=== PATIENT | male | born 1970 | race Caucasian/White ===

== ENCOUNTER 2017-01-23 16:33 | Inpatient (IN) | payer OTHER ==
--- NOTE | 2017-01-23 18:48 | HP ---
CIWA Score - CIWA Score Nausea/Vomitin Muscle Tremors: 3 Anxiety: 3 Agitation: 3 Paroxysmal Sweats: 2 Orientation: 0-Oriented Tacttile Disturbances: 2-Mild Itch/Numbness/Burn Auditory Disturbances: 2-Mild Harshness/Frighten Visual Disturbances: 0-None Headache: 2-Mild CIWA-Ar Total Score: 20 Admission ROS [facility] - HPI Chief Complaint: I AM HERE NEED HELP TO STOP DRINKING ALCOHOL AND USING DRUGS COCAINE,LAST TREATMENT 2010 DID NOT RECALL FACILITY SYNCOPE ANXIETY,DEPRESSION,PTSD,MOOD DISORDER SEVRAL ADMISSIONS IN THE PSYCHIATRIC FACILITIES NICOTINE DEPENDENCE NO SIGNIFICANT PERIOD OF SOBRIETY Allergies/Adverse Reactions: Allergies Allergy/AdvReac Type Severity Reaction Status Date / Time No Known Allergies Allergy Verified 01/23/17 18:48 History of Present Illness: THIS 46 YEARS OLD MALE WITH ALCOHOL,KLONOPIN,COCAINE FOR DETOX MENTIONED IN CHIEF COMPLAINT Exam Limitations: No Limitations - Ebola screening Have you traveled outside of the country in the last 21 days: No Have you had contact with anyone from an Ebola affected area: No Do you have a fever: No - Review of Systems Constitutional: Loss of Appetite, Malaise, Night Sweats, Changes in sleep, Weakness, Unintentional Wgt. Loss EENT: reports: Nose Congestion Respiratory: reports: No Symptoms reported Cardiac: reports: No Symptoms Reported GI: reports: Diarrhea, Nausea, Vomiting, Abdominal cramping : reports: No Symptoms Reported Musculoskeletal: reports: Back Pain, Muscle Pain, Joint Stiffness Integumentary: reports: Dryness Neuro: reports: Headache, Tremors Endocrine: reports: No Symptoms Reported Hematology: reports: No Symptoms Reported Psychiatric: reports: No Sypmtoms Reported, Judgement Intact, Mood/Affect Appropiate, Orientated x3 (PTSD,MMOD DISORDER), Anxious, Depressed Patient History - Patient Medical History Hx Anemia: No Hx Asthma: No Hx Chronic Obstructive Pulmonary Disease (COPD): No Hx Cancer: No Hx Cardiac Disorders: No Hx Congestive Heart Failure: No Hx Hypertension: No Hx Hypercholesterolemia: No Hx Pacemaker: No HX Cerebrovascular Accident: No Hx Seizures: No Hx Dementia: No Hx Diabetes: No Hx Gastrointestinal Disorders: Yes Hx Liver Disease: No Hx Genitourinary Disorders: No Hx Sexually Transmitted Disorders: Yes (GONORRHEA) Hx Renal Disease (ESRD): No Hx Thyroid Disease: No Hx Human Immunodeficiency Virus (HIV): No Hx Hepatitis C: No Hx Depression: Yes (ANXIETY) Hx Suicide Attempt: Yes (HANG HIMSELF IN 2007) Hx Bipolar Disorder: No Hx Schizophrenia: No Other Medical History: MOOD DISORDER,PTSD,NO SUICIDAL,NO HOMICIDAL - Patient Surgical History Past Surgical History: No - PPD History Previous Implant?: Yes Documented Results: Negative w/o proof Implanted On Prior [facility] Admission?: No PPD to be Administered?: Yes - Smoking Cessation Smoking history: Current every day smoker Have you smoked in the past 12 months: Yes Aproximately how many cigarettes per day: 20 Hx Chewing Tobacco Use: No Initiated information on smoking cessation: Yes 'Breaking Loose' booklet given: 01/23/17 - Substance & Tx. History Hx Alcohol Use: Yes Hx Substance Use: Yes Substance Use Type: Alcohol, Cocaine, Tranquilizers Hx Substance Use Treatment: Yes (2010 UNKNOWN FACILITY) - Substances Abused Alcohol Route: Oral Frequency: Daily Amount used: 5 PINTS Age of first use: 15 Date of Last Use: 01/23/17 Benzodiazepine (Klonopin) Route: Oral Frequency: Daily Amount used: 17 Date of Last Use: 01/23/17 Cocaine Route: Injection Frequency: Daily Amount used: 250$ Age of first use: 18 Date of Last Use: 01/22/17 Family Disease History - Family Disease History Family Disease History: Other: Father (ALCOHOL,PSY,DECEDASED) Admission Physical Exam BHS - Vital Signs Vital Signs: Vital Signs Temperature 97 F L 01/23/17 19:04 Pulse Rate 97 H 01/23/17 19:04 Respiratory Rate 20 01/23/17 19:04 Blood Pressure 118/79 01/23/17 19:04 O2 Sat by Pulse Oximetry (%) - Physical General Appearance: Yes: Moderate Distress, Tremorous, Irritable, Sweating, Anxious HEENTM: Yes: Normal ENT Inspection, TEA, Pharynx Normal Respiratory: Yes: Lungs Clear, Normal Breath Sounds, No Respiratory Distress Neck: Yes: Within Normal Limits, Supple, Trachea in good position Breast: Yes: Within Normal Limits Cardiology: Yes: Within Normal Limits, Regular Rhythm, Regular Rate, S1, S2 Abdominal: Yes: Within Normal Limits, Normal Bowel Sounds, Non Tender, Soft Genitourinary: Yes: Within Normal Limits Back: Yes: Muscle Spasm Musculoskeletal: Yes: Back pain, Muscle Pain Extremities: Yes: Within Normal Limits, Normal Range of Motion, Tremors Neurological: Yes: pr manager II-XII NML intact, Alert, Motor Strength 5/5 Integumentary: Yes: Dry Lymphatic: Yes: Within Normal Limits - Diagnostic (1) Alcohol dependence with uncomplicated withdrawal Current Visit: Yes Status: Acute (2) Uncomplicated sedative, hypnotic or anxiolytic withdrawal Current Visit: Yes Status: Acute (3) Nicotine dependence Current Visit: Yes Status: Acute (4) Anxiety and depression Current Visit: Yes Status: Acute (5) PTSD (post-traumatic stress disorder) Current Visit: Yes Status: Acute (6) Mood disorder Current Visit: Yes Status: Acute (7) GERD (gastroesophageal reflux disease) Current Visit: Yes Status: Acute (8) Syncope Current Visit: Yes Status: Acute (9) Weight loss Current Visit: Yes Status: Acute Cleared for Admission BHS - Detox or Rehab S Level of Care: Medically Managed Detox Regimen/Protocol: Valium BHS Breath Alcohol Content Breath Alcohol Content: 0 Vital Signs - Vital Signs Vital Signs Refused: No Temperature: 97 F Temperature Source: Oral Pulse Rate: 97 Respiratory Rate: 20 Blood Pressure: 118/79 BP Location: Left Arm Blood Pressure Position: Sitting - Height Height: 5 ft 8 in - Weight Weight: 183 lb Weight Measurement Method: Standing Scale Body Mass Index (BMI): 27.8 Urine Drug Screen - Test Device Lot Number: [id number] Expiration Date: 10/08/18 - Control Is Test Valid: Yes - Results Drug Screen Negative: No Urine Drug Screen Results: JONATHAN-Cocaine, BZO-Benzodiazepines
[2017-01-23 19:04] VITALS: BMI 27.8
[2017-01-23] MEDS ORDERED: MAG HYDROX/AL HYDROX/SIMETH 30 ML UNIT-DOSE CUP PO PRN (19:12)
[2017-01-23] MEDS ORDERED: MAGNESIUM HYDROX 2400MG/30ML ORAL SUSPENSION 30 ML CUP PO PRN (19:12)
[2017-01-23] MEDS ORDERED: hydrOXYzine PAMOATE 50 MG CAPSULE (FP) PO PRN (19:12)
[2017-01-23] MEDS ORDERED: diphenhydrAMINE HCL 50 MG CAPSULE PO PRN (19:12)
[2017-01-23] MEDS ORDERED: MENTHOL/PHENOL 1 EACH UD MM PRN (19:12)
[2017-01-23] MEDS ORDERED: IBUPROFEN 400 MG TABLET (FP) PO PRN (19:12)
[2017-01-23] MEDS ORDERED: MAGNESIUM CITRATE 300 ML BOTTLE PO PRN (19:12)
[2017-01-23] MEDS ORDERED: guaiFENesin/D-METHORPHAN HB 10 ML UNIT-DOSE CUPS PO PRN (19:12)
[2017-01-23] MEDS ORDERED: ACETAMINOPHEN 325 MG TABLET (FP) PO PRN (19:12)
[2017-01-23] MEDS ORDERED: LOPERAMIDE HCL 2 MG CAPSULE PO PRN (19:12)
[2017-01-23] MEDS ORDERED: P-EPHED 60MG/TRIPROLIDI 2.5MG TABLET PO PRN (19:12)
[2017-01-23] MEDS ORDERED: diazePAM 5 MG TABLET PO ONE (19:12)
[2017-01-23] MEDS: NICOTINE 21 MG/24 HOURS TOPICAL PATCH TD SCH (22:03)
--- NOTE | 2017-01-23 22:28 | PN ---
[facility] Progress Note Note: MD'S NOTE: INFORMED AT ABOUT 10:10PM THAT THE PT. FELL ON THE FLOOR SUB: HE CLAIMS THAT HE DID NO SLEEP FOR 5 DAYS AND FEELING SLEEPY DENIES: ANY PAIN OR INJURY OR HITTING THE HEAD OBJ: THE PT. IS VILLEDA X 3, NOT IN DISTRESS AND HE IS AMBULATORY HE IS VERY IRRITABLE FOR ABOVE REASON. 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
[2017-01-23] MEDS: THIAMINE HCL 100 MG TABLET (FP) PO SCH (22:35)
[2017-01-23] MEDS: diazePAM 5 MG TABLET PO SCH (22:37)
[2017-01-24] MEDS: diazePAM 5 MG TABLET PO SCH ×3 (05:23→22:21)
[2017-01-24 09:42] LABS: URINE APPEARANCE CLEAR; URINE BILIRUBIN NEGATIVE (NEGATIVE); URINE BLOOD NEGATIVE (NEGATIVE); URINE COLOR LT. YELLOW; URINE GLUCOSE (UA) NEGATIVE (NEGATIVE); URINE KETONE NEGATIVE (NEGATIVE); URINE NITRITE NEGATIVE (NEGATIVE); URINE PROTEIN NEGATIVE (NEGATIVE)
[2017-01-24 09:50] LABS: MCH 30.9 pg (25.7-33.7); MCHC 33.7 g/dl (32.0-35.9); MEAN CELL VOLUME 91.6 fl (80-96); MEAN PLT VOLUME 8.4 fl (7.5-11.1); PLATELET COUNT 202 K/MM3 (134-434); RDW 13.5 % (11.9-15.9)
[2017-01-24 10:11] LABS: ALBUMIN 3.2 g/dl (3.4-5.0); ALK PHOS 96 U/L (45-117); ANION GAP 8 (8-16); BILIRUBIN,TOTAL 0.5 mg/dL (0.2-1.0); CALCIUM 8.2 mg/dL (8.5-10.1); CO2 30 mmol/L (21-32); CREATININE 1.3 mg/dL (0.7-1.3); GLUCOSE,RANDOM 137 mg/dL (74-106); SGOT/AST 52 U/L (15-37); SGPT/ALT 83 U/L (12-78); TOT PROT 6.5 g/dl (6.4-8.2)
[2017-01-24] MEDS: PRENATAL VITAMINS W/ FOLIC ACID TABLET (FP) PO SCH (10:26)
[2017-01-24] MEDS: NICOTINE 21 MG/24 HOURS TOPICAL PATCH TD SCH (10:27)
[2017-01-24] MEDS: diazePAM 5 MG TABLET PO PRN ×2 (10:29→18:08)
--- NOTE | 2017-01-24 11:55 | PN ---
S CIWA - CIWA Score Nausea/Vomitin Muscle Tremors: 3 Anxiety: 3 Agitation: 3 Paroxysmal Sweats: 1-Minimal Palms Moist Orientation: 0-Oriented Tacttile Disturbances: 1-Very Mild Itch/Numbness Auditory Disturbances: 1-Very Mild Visual Disturbances: 0-None Headache: 2-Mild CIWA-Ar Total Score: 17 BHS Progress Note (SOAP) Subjective: alert,irritable,anxious,interrupted sleep,tremor,pain in the body and back Objective: 01/24/17 11:53 01/24/17 11:53 Vital Signs Temperature 97.0 F L 01/24/17 11:04 Pulse Rate 84 01/24/17 11:04 Respiratory Rate 18 01/24/17 11:04 Blood Pressure 130/79 01/24/17 11:04 O2 Sat by Pulse Oximetry (%) ekg nsr,prolong qt no chest pain,no sob no dizziness 01/24/17 11:54 Laboratory Last Values WBC 8.0 K/mm3 (4.0-10.0) 01/24/17 07:00 RBC 4.65 M/mm3 (4.00-5.60) 01/24/17 07:00 Hgb 14.4 GM/dL (11.7-16.9) 01/24/17 07:00 Hct 42.6 % (35.4-49) 01/24/17 07:00 MCV 91.6 fl (80-96) 01/24/17 07:00 MCH 30.9 pg (25.7-33.7) 01/24/17 07:00 MCHC 33.7 g/dl (32.0-35.9) 01/24/17 07:00 RDW 13.5 % (11.9-15.9) 01/24/17 07:00 Plt Count 202 K/MM3 (134-434) 01/24/17 07:00 MPV 8.4 fl (7.5-11.1) 01/24/17 07:00 Sodium 142 mmol/L (136-145) 01/24/17 07:00 Potassium 3.3 mmol/L (3.5-5.1) L 01/24/17 07:00 Chloride 104 mmol/L (98-107) 01/24/17 07:00 Carbon Dioxide 30 mmol/L (21-32) 01/24/17 07:00 Anion Gap 8 (8-16) 01/24/17 07:00 BUN 17 mg/dL (7-18) 01/24/17 07:00 Creatinine 1.3 mg/dL (0.7-1.3) 01/24/17 07:00 Creat Clearance w eGFR 59.70 (>60) 01/24/17 07:00 Random Glucose 137 mg/dL (74-106) H 01/24/17 07:00 Calcium 8.2 mg/dL (8.5-10.1) L 01/24/17 07:00 Total Bilirubin 0.5 mg/dL (0.2-1.0) 01/24/17 07:00 AST 52 U/L (15-37) H 01/24/17 07:00 ALT 83 U/L (12-78) H 01/24/17 07:00 Alkaline Phosphatase 96 U/L (45-117) 01/24/17 07:00 Total Protein 6.5 g/dl (6.4-8.2) 01/24/17 07:00 Albumin 3.2 g/dl (3.4-5.0) L 01/24/17 07:00 Urine Color Lt. yellow 01/24/17 07:00 Urine Appearance Clear 01/24/17 07:00 Urine pH 6.0 (5.0-8.0) 01/24/17 07:00 Urine Protein Negative (NEGATIVE) 01/24/17 07:00 Urine Glucose (UA) Negative (NEGATIVE) 01/24/17 07:00 Urine Ketones Negative (NEGATIVE) 01/24/17 07:00 Urine Blood Negative (NEGATIVE) 01/24/17 07:00 Urine Nitrite Negative (NEGATIVE) 01/24/17 07:00 Urine Bilirubin Negative (NEGATIVE) 01/24/17 07:00 Urine Urobilinogen 2.0 mg/dL (0.2-1.0) 01/24/17 07:00 RPR Titer Nonreactive (NONREACTIVE) 01/24/17 07:00 Assessment: 01/24/17 11:55 withdrawal symptom Plan: continue detox,k dur 20 meq po daily for hypokalemia k is 3.3, fasting glucose in am initial glucose is 137
[2017-01-24] MEDS: POTASSIUM CHLORIDE TABS 20 MEQ TABLET.ER (FP) PO SCH (12:10)
--- NOTE | 2017-01-24 14:03 | CONSULT ---
[facility] Psychiatric Consult - Data Date of interview: 01/24/17 Admission source: [facility] Identifying data: First admission to [facility] for this 46 y/o male seeking detox treatment on for alcohol,cocaine and benzodiazepine dependence.Patient is single without children,homeless,unemployed and supported on [facility] benefits. Substance Abuse History: Discussed with the patient.He confirmed these addictions. Smoking Cessation. Smoking history: Current every day smoker. Have you smoked in the past 12 months: Yes. Aproximately how many cigarettes per day: 20. Hx Chewing Tobacco Use: No. Initiated information on smoking cessation: Yes. 'Breaking Loose' booklet given: 01/23/17. - Substance & Tx. History. Hx Alcohol Use: Yes. Hx Substance Use: Yes. Substance Use Type: Alcohol, Cocaine, Tranquilizers. Hx Substance Use Treatment: Yes (2010 UNKNOWN FACILITY). - Substances Abused. Alcohol. Route: Oral. Frequency: Daily. Amount used: 5 PINTS. Age of first use: 15. Date of Last Use: 01/23/17. Benzodiazepine (Klonopin). Route: Oral. Frequency: Daily. Amount used: 17. Date of Last Use: 01/23/17. Cocaine. Route: Injection. Frequency: Daily. Amount used: 250$. Age of first use: 18. Date of Last Use: 01/22/17 Medical History: Gerd and a history of treatment for gonorrhea. Psychiatric History: Patient reports onset of psychiatric disturbances at age 34 ( of mother).Multiple psychiatric hospitalizations (just discharged from [facility]).Diagnosed with MDD and Anxiety Disorder.Prescribed depakote 1500 mg/day + remeron 30 mg/hs + wellbutrin XR 450 mg/day (verified through review of pharmacy claims of 01/20/17).Mr Beasley sees a psychiatrist for medication management at the [facility] in [facility].States that he last took his medications 3-4 days ago.Eager to resume medications.Patient endorses a history of suicide attempt via hanging (2007). Physical/Sexual Abuse/Trauma History: No reported history of abuse.Traumatized by the of his mother and three years of incarceration (details not offered ). Additional Comment: Urine Drug Screen Results: JONATHAN-Cocaine, BZO- Benzodiazepines.Noted. Mental Status Exam - Mental Status Exam Alert and Oriented to: Time, Place, Person Cognitive Function: Good Patient Appearance: Disheveled (unshaven but wearing neat hospital attire ; appears his stated age ; well nourished) Mood: Nervous, Anxious, Hopeful Affect: Mood Congruent Patient Behavior: Talkative (friendly and seemingly comfortable in the delivery of personal information), Cooperative Speech Pattern: Clear, Appropriate Voice Loudness: Normal Thought Process: Intact, Goal Oriented Thought Disorder: Not Present Hallucinations: Denies Suicidal Ideation: Denies Homicidal Ideation: Denies Insight/Judgement: Poor Sleep: Poorly, Difficulty falling asleep (insists on getting mirtazapine at bedtime) Appetite: Good Muscle strength/Tone: Normal Gait/Station: Normal Psychiatric Findings - Problem List ([place] 1, 2,3) (1) Uncomplicated sedative, hypnotic or anxiolytic withdrawal Current Visit: Yes Status: Acute (2) Alcohol dependence with uncomplicated withdrawal Current Visit: Yes Status: Acute (3) Cocaine dependence Current Visit: Yes Status: Acute (4) Nicotine dependence Current Visit: Yes Status: Acute (5) Mood disorder Current Visit: Yes Status: Chronic Comment: Diagnosis received at [facility] as per self-report. (6) PTSD (post-traumatic stress disorder) Current Visit: Yes Status: Chronic (7) Substance induced mood disorder Current Visit: Yes Status: Acute (8) GERD (gastroesophageal reflux disease) Current Visit: Yes Status: Acute (9) Insomnia Current Visit: Yes Status: Acute - Initial Treatment Plan Initial Treatment Plan: Psychoeducation.Detoxification in progress.Medications : wellbutrin XL 300 mg po today.Will increase to 450 mg po daily.Additional medications : depakote 500 mg po am + 1000 mg po hs + remeron 7.5 mg po hs ( reduced as caution for orthostasis).Side effects/benefits discussed with the patient.Mr Beasley is in agreement with this plan of care.Observation.NO scripts needed at discharge.
[2017-01-24 16:52] LABS: URINE LEUK ESTERASE Negative (NEGATIVE)
[2017-01-24] MEDS: DIVALPROEX SODIUM 500 MG TABLET E.C. PO SCH (22:21)
[2017-01-24] MEDS: THIAMINE HCL 100 MG TABLET (FP) PO SCH (22:21)
[2017-01-24] MEDS: MIRTAZAPINE 15 MG TABLET (FP) PO SCH (22:22)
[2017-01-25] MEDS: diazePAM 5 MG TABLET PO PRN ×4 (04:19→17:03)
--- NOTE | 2017-01-25 07:22 | EKG ---
Test Reason : Blood Pressure : / mmHG Vent. Rate : 091 BPM Atrial Rate : 091 BPM P-R Int : 154 ms QRS Dur : 096 ms QT Int : 418 ms P-R-T Axes : 035 024 031 degrees QTc Int : 514 ms NORMAL SINUS RHYTHM PROLONGED QT ABNORMAL ECG NO PREVIOUS ECGS AVAILABLE Confirmed by BOBBY ADHIKARI, KAREN ([id number]) on 01/25/2017 7:22:39 AM Referred By: Kentrell Delgado Confirmed By:KAREN ROSALES MD
[2017-01-25 10:05] LABS: ANION GAP 9 (8-16); CALCIUM 8.2 mg/dL (8.5-10.1); CO2 28 mmol/L (21-32); GLUCOSE,FASTING 113 mg/dL (70-105); GLUCOSE,RANDOM 113 mg/dL (74-106)
[2017-01-25] MEDS: NICOTINE 21 MG/24 HOURS TOPICAL PATCH TD SCH (10:25)
[2017-01-25] MEDS: POTASSIUM CHLORIDE TABS 20 MEQ TABLET.ER (FP) PO SCH (10:25)
[2017-01-25] MEDS: PRENATAL VITAMINS W/ FOLIC ACID TABLET (FP) PO SCH (10:25)
[2017-01-25] MEDS: DIVALPROEX SODIUM 500 MG TABLET E.C. PO SCH ×2 (10:25→22:19)
[2017-01-25] MEDS: diazePAM 5 MG TABLET PO SCH ×2 (10:26→22:18)
--- NOTE | 2017-01-25 10:50 | PN ---
S CIWA - CIWA Score Nausea/Vomitin Muscle Tremors: 3 Anxiety: 3 Agitation: 3 Paroxysmal Sweats: 1-Minimal Palms Moist Orientation: 0-Oriented Tacttile Disturbances: 1-Very Mild Itch/Numbness Auditory Disturbances: 1-Very Mild Visual Disturbances: 0-None Headache: 2-Mild CIWA-Ar Total Score: 17 BHS Progress Note (SOAP) Subjective: alert,irritable,anxious,interrupted sleep,tremor Objective: 01/25/17 10:49 Vital Signs Temperature 97.3 F L 01/25/17 10:00 Pulse Rate 85 01/25/17 10:00 Respiratory Rate 18 01/25/17 10:00 Blood Pressure 139/88 01/25/17 10:00 O2 Sat by Pulse Oximetry (%) Laboratory Last Values WBC 8.0 K/mm3 (4.0-10.0) 01/24/17 07:00 RBC 4.65 M/mm3 (4.00-5.60) 01/24/17 07:00 Hgb 14.4 GM/dL (11.7-16.9) 01/24/17 07:00 Hct 42.6 % (35.4-49) 01/24/17 07:00 MCV 91.6 fl (80-96) 01/24/17 07:00 MCH 30.9 pg (25.7-33.7) 01/24/17 07:00 MCHC 33.7 g/dl (32.0-35.9) 01/24/17 07:00 RDW 13.5 % (11.9-15.9) 01/24/17 07:00 Plt Count 202 K/MM3 (134-434) 01/24/17 07:00 MPV 8.4 fl (7.5-11.1) 01/24/17 07:00 Sodium 142 mmol/L (136-145) 01/24/17 07:00 Potassium 3.3 mmol/L (3.5-5.1) L 01/24/17 07:00 Chloride 104 mmol/L (98-107) 01/24/17 07:00 Carbon Dioxide 30 mmol/L (21-32) 01/24/17 07:00 Anion Gap 8 (8-16) 01/24/17 07:00 BUN 17 mg/dL (7-18) 01/24/17 07:00 Creatinine 1.3 mg/dL (0.7-1.3) 01/24/17 07:00 Creat Clearance w eGFR 59.70 (>60) 01/24/17 07:00 Random Glucose 137 mg/dL (74-106) H 01/24/17 07:00 Calcium 8.2 mg/dL (8.5-10.1) L 01/24/17 07:00 Total Bilirubin 0.5 mg/dL (0.2-1.0) 01/24/17 07:00 AST 52 U/L (15-37) H 01/24/17 07:00 ALT 83 U/L (12-78) H 01/24/17 07:00 Alkaline Phosphatase 96 U/L (45-117) 01/24/17 07:00 Total Protein 6.5 g/dl (6.4-8.2) 01/24/17 07:00 Albumin 3.2 g/dl (3.4-5.0) L 01/24/17 07:00 Urine Color Lt. yellow 01/24/17 07:00 Urine Appearance Clear 01/24/17 07:00 Urine pH 6.0 (5.0-8.0) 01/24/17 07:00 Ur Specific [place] 1.025 (1.005-1.025) 01/24/17 07:00 Urine Protein Negative (NEGATIVE) 01/24/17 07:00 Urine Glucose (UA) Negative (NEGATIVE) 01/24/17 07:00 Urine Ketones Negative (NEGATIVE) 01/24/17 07:00 Urine Blood Negative (NEGATIVE) 01/24/17 07:00 Urine Nitrite Negative (NEGATIVE) 01/24/17 07:00 Urine Bilirubin Negative (NEGATIVE) 01/24/17 07:00 Urine Urobilinogen 2.0 mg/dL (0.2-1.0) 01/24/17 07:00 Ur Leukocyte Esterase Negative (NEGATIVE) 01/24/17 07:00 RPR Titer Nonreactive (NONREACTIVE) 01/24/17 07:00 repeat bmp,fasting glucose pending Assessment: 01/25/17 10:50 withdrawal symptom Plan: continue detox
[2017-01-25] MEDS ORDERED: ONDANSETRON 8 MG TABLET (FP) PO PRN (18:03)
[2017-01-25] MEDS: PANTOPRAZOLE 40 MG TABLET (FP) PO SCH (18:05)
[2017-01-25] MEDS: ONDANSETRON *ODT* 4 MG TABLET SL PRN (18:32)
[2017-01-25] MEDS: THIAMINE HCL 100 MG TABLET (FP) PO SCH (22:18)
[2017-01-25] MEDS: MIRTAZAPINE 15 MG TABLET (FP) PO SCH (22:19)
[2017-01-26] MEDS: diazePAM 5 MG TABLET PO PRN ×4 (02:42→16:36)
[2017-01-26] MEDS: PRENATAL VITAMINS W/ FOLIC ACID TABLET (FP) PO SCH (10:21)
[2017-01-26] MEDS: diazePAM 5 MG TABLET PO SCH ×2 (10:21→22:21)
[2017-01-26] MEDS: POTASSIUM CHLORIDE TABS 20 MEQ TABLET.ER (FP) PO SCH (10:21)
[2017-01-26] MEDS: PANTOPRAZOLE 40 MG TABLET (FP) PO SCH (10:21)
[2017-01-26] MEDS: NICOTINE 21 MG/24 HOURS TOPICAL PATCH TD SCH (10:21)
[2017-01-26] MEDS: DIVALPROEX SODIUM 500 MG TABLET E.C. PO SCH ×2 (10:21→22:21)
[2017-01-26] MEDS: ONDANSETRON *ODT* 4 MG TABLET SL PRN (10:22)
--- NOTE | 2017-01-26 11:19 | PN ---
S Progress Note (SOAP) Subjective: alert,irritable,anxious,interrupted sleep Objective: 01/26/17 11:19 Vital Signs Temperature 96.6 F L 01/26/17 10:00 Pulse Rate 70 01/26/17 10:00 Respiratory Rate 18 01/26/17 10:00 Blood Pressure 134/80 01/26/17 10:00 O2 Sat by Pulse Oximetry (%) Assessment: 01/26/17 11:19 withdrawal symptom Plan: continue detox,discharge in am
[2017-01-26] MEDS ORDERED: TRIMETHOBENZAMIDE HCL 200MG/2ML INJ IM PRN (13:17)
[2017-01-26] MEDS: THIAMINE HCL 100 MG TABLET (FP) PO SCH (22:21)
[2017-01-26] MEDS: MIRTAZAPINE 15 MG TABLET (FP) PO SCH (22:21)
[2017-01-27 06:36] VITALS: PULSE 90
--- NOTE | 2017-01-27 08:34 | DS ---
[facility] Detox Discharge Summary Admission Date: 01/23/17 Discharge Date: 01/27/17 - History Present History: Alcohol Dependence, Cocaine Dependence, Sedative Dependence Additional Comments: follow up with after care program as arrangement Pertinent Past History: gerd weight loss ptsd - Physical Exam Results Vital Signs: Vital Signs Temperature 97.3 F L 01/27/17 06:36 Pulse Rate 90 01/27/17 06:36 Respiratory Rate 20 01/27/17 06:36 Blood Pressure 119/90 01/27/17 06:36 O2 Sat by Pulse Oximetry (%) Pertinent Admission Physical Exam Findings: withdrawal symptom - Treatment Hospital Course: Detox Protocol Followed, Detoxed Safely, Responded well, Discharged Condition Good, Rehab Referral Accepted Patient has Accepted [facility] Ref[facility] - Medication Discharge Medications: Ambulatory Orders Divalproex [Depakote -] 1,000 mg PO DAILY 01/23/17 Divalproex [Depakote -] 500 mg PO HS 01/23/17 Emtricitabine/Tenofovir [Truvada] 1 tab PO DAILY 01/23/17 Mirtazapine [Remeron -] 30 mg PO HS 01/23/17 Omeprazole 40 mg PO DAILY 01/23/17 - Diagnosis (1) Alcohol dependence with uncomplicated withdrawal Current Visit: Yes Status: Acute (2) Uncomplicated sedative, hypnotic or anxiolytic withdrawal Current Visit: Yes Status: Acute (3) Nicotine dependence Current Visit: Yes Status: Acute (4) Anxiety and depression Current Visit: Yes Status: Acute (5) PTSD (post-traumatic stress disorder) Current Visit: Yes Status: Chronic (6) Mood disorder Current Visit: Yes Status: Chronic (7) GERD (gastroesophageal reflux disease) Current Visit: Yes Status: Acute (8) Syncope Current Visit: Yes Status: Acute (9) Weight loss Current Visit: Yes Status: Acute (10) Hypokalemia Current Visit: Yes Status: Acute - AMA Did Patient Leave Against Medical Advice: No
[2017-01-27] MEDS: PRENATAL VITAMINS W/ FOLIC ACID TABLET (FP) PO SCH (09:40)
[2017-01-27] MEDS: PANTOPRAZOLE 40 MG TABLET (FP) PO SCH (09:40)
[2017-01-27] MEDS: POTASSIUM CHLORIDE TABS 20 MEQ TABLET.ER (FP) PO SCH (09:41)
[2017-01-27] MEDS: DIVALPROEX SODIUM 500 MG TABLET E.C. PO SCH (09:41)
[2017-01-27] MEDS: NICOTINE 21 MG/24 HOURS TOPICAL PATCH TD SCH (09:47)
[2017-01-27 09:56] VITALS: BP 122/89; TEMP 98.3
[2017-01-27] MEDS ORDERED: diazePAM 5 MG TABLET PO SCH (10:00)
== END 2017-01-27 12:04 | disposition other institution (70) | DRG 897 ==
LOC: YASAS 16:33 → Y6N 19:47
PROVIDERS: ADMIT Internal Medicine; ATTEND Internal Medicine
PROC: HZ2ZZZZ Detoxification Services for Substance Abuse Treatment (ICD-10-PCS; principal; 2017-01-23)
DX: F13.230 Sedative, hypnotic or anxiolytic dependence with withdrawal, uncomplicated (principal); F10.230 Alcohol dependence with withdrawal, uncomplicated; F17.210 Nicotine dependence, cigarettes, uncomplicated; F41.8 Other specified anxiety disorders; F43.10 Post-traumatic stress disorder, unspecified; F39 Unspecified mood [affective] disorder; E87.5 Hyperkalemia; K21.9 Gastro-esophageal reflux disease without esophagitis; G47.00 Insomnia, unspecified; R63.4 Abnormal weight loss; Z68.27 Body mass index [BMI] 27.0-27.9, adult; Z59.0 Homelessness
CPT/HCPCS: 36415; 80048; 80053; 80164; 81003; 82947; 85027; 86593; 93005; 93010

== ENCOUNTER 2022-01-29 09:55 | Inpatient (IN) | payer OTHER ==
[2022-01-29] MEDS ORDERED: ACETAMINOPHEN 1000 MG/100 ML BAG IVPB ONE (10:08)
[2022-01-29] MEDS ORDERED: SODIUM CHLORIDE 0.9% 500 ML INFUS.BAG IV ONE (10:08)
[2022-01-29] MEDS ORDERED: ACETAMINOPHEN INJECTION 100 ML IVPB ONE (10:29)
[2022-01-29 10:55] LABS: VENOUS BASE EXCESS 0.8 mmol/L (-2-2); VENOUS O2 SATURATION 75.6 % (70-80); VENOUS PCO2 48.7 mmHg (38-52); VENOUS PH 7.363 (7.310-7.410)
[2022-01-29 10:56] LABS: URINE APPEARANCE CLEAR; URINE BILIRUBIN NEGATIVE (NEGATIVE); URINE COLOR YELLOW; URINE GLUCOSE (UA) 3+ (NEGATIVE); URINE KETONE NEGATIVE (NEGATIVE); URINE LEUK ESTERASE NEGATIVE (NEGATIVE); URINE NITRITE NEGATIVE (NEGATIVE); URINE PROTEIN NEGATIVE (NEGATIVE)
[2022-01-29 11:16] LABS: BASO % 0.2 % (0-2.0); EOS % 1.5 % (0-4.5); HEMATOCRIT 50.6 % (35.4-49); HEMOGLOBIN 16.9 GM/dL (11.7-16.9); LYMPH % 12.2 % (8-40); MCH 30.6 pg (25.7-33.7); MCHC 33.3 g/dl (32.0-35.9); MEAN CELL VOLUME 91.9 fl (80-96); MEAN PLT VOLUME 9.1 fl (7.5-11.1); MONO % 9.9 % (3.8-10.2); NEUT % 76.2 % (42.8-82.8); PLATELET COUNT 189 10^3/uL (134-434); RBC 5.51 M/mm3 (4.00-5.60); RDW 12.8 % (11.9-15.9); WHITE BLOOD COUNT 12.7 K/mm3 (4.0-10.0)
[2022-01-29 11:19] LABS: CHLORIDE 97 mmol/L (98-107); INR 1.1 (0.83-1.09); PROTHROMBIN TIME (PATIENT) 12.7 SEC (9.7-13.0); SODIUM 136 mmol/L (136-145)
[2022-01-29 11:22] LABS: ACTIVATED PTT 28.6 SECONDS (25.2-36.5); ALBUMIN 3.5 g/dl (3.4-5.0); ANION GAP 10 MMOL/L (8-16); BLOOD UREA NITROGEN 15.1 mg/dL (7-18); CALCIUM 8.7 mg/dL (8.5-10.1); CO2 28 mmol/L (21-32)
[2022-01-29 11:24] LABS: SGPT/ALT 116 U/L (13-61)
[2022-01-29 11:26] LABS: CREATININE 1.4 mg/dL (0.55-1.3); SGOT/AST 81 U/L (15-37)
[2022-01-29 11:27] LABS: BILIRUBIN,TOTAL 1.1 mg/dL (0.2-1)
[2022-01-29 11:28] LABS: ALK PHOS 116 U/L (45-117)
[2022-01-29 11:29] LABS: GLUCOSE,RANDOM 401 mg/dL (74-106)
[2022-01-29] MEDS ORDERED: AZITHROMYCIN IVPB 500 MG in DEXTROSE 5%-WATER - 250 ML IVPB ONE (12:09)
[2022-01-29] MEDS ORDERED: CEFTRIAXONE 1,000 MG in DEXTROSE 5%-WATER - 50 ML IVPB ONE (12:09)
[2022-01-29] MEDS ORDERED: AZITHROMYCIN IVPB 500 MG/250 ML BAG IVPB ONE (12:12)
[2022-01-29] MEDS ORDERED: CEFTRIAXONE 1 GM/50 ML BAG ONE (12:12)
[2022-01-29] MEDS ORDERED: ACETAMINOPHEN 325 MG TABLET (FP) PO PRN (13:44)
[2022-01-29] MEDS ORDERED: SENNOSIDES 8.6MG TABLET (FP) PO PRN (13:44)
[2022-01-29] MEDS ORDERED: FAMOTIDINE 20 MG TABLET PO PRN (13:52)
[2022-01-29 15:41] VITALS: BMI 26.8
[2022-01-29] MEDS ORDERED: NICOTINE 7 MG/24 HOURS TOPICAL PATCH TD PRN (15:46)
[2022-01-29] MEDS: SODIUM CHLORIDE 1,000 ML IV SCH (16:36)
[2022-01-29] MEDS: HEPARIN NA (PORCINE) 5,000 UNITS/ML 1ML VIAL SQ SCH ×2 (16:40→22:00)
[2022-01-29] MEDS ORDERED: FLU VACC QS2022-23(6MOS UP)/PF 60 MCG/0.5 ML SYRINGE IM ONE (17:00)
[2022-01-29] MEDS: INSULIN SLIDING SCALE (NOVOLOG) 1 VIAL SQ SCH ×2 (17:52→21:59)
[2022-01-29] MEDS ORDERED: QUEtiapine FUMARATE 100 MG TABLET (FP) ONE (21:26)
[2022-01-29] MEDS: clonazePAM 0.5 MG TABLET PO SCH (21:51)
[2022-01-29] MEDS: QUEtiapine FUMARATE 300 MG TABLET PO SCH (21:52)
[2022-01-30] MEDS: INSULIN SLIDING SCALE (NOVOLOG) 1 VIAL SQ SCH ×4 (06:36→21:55)
[2022-01-30] MEDS: HEPARIN NA (PORCINE) 5,000 UNITS/ML 1ML VIAL SQ SCH ×3 (06:36→21:45)
[2022-01-30] MEDS: MULTIVITAMINS (DAILY MVI) TABLET (FP) PO SCH (09:17)
[2022-01-30] MEDS: clonazePAM 0.5 MG TABLET PO SCH ×2 (09:18→21:46)
[2022-01-30 09:24] LABS: BASO % 0.5 % (0-2.0); EOS % 2.3 % (0-4.5); HEMATOCRIT 45.8 % (35.4-49); HEMOGLOBIN 15.4 GM/dL (11.7-16.9); LYMPH % 16.2 % (8-40); MCH 30.7 pg (25.7-33.7); MCHC 33.5 g/dl (32.0-35.9); MEAN CELL VOLUME 91.6 fl (80-96); MEAN PLT VOLUME 8.9 fl (7.5-11.1); MONO % 10.4 % (3.8-10.2); NEUT % 70.6 % (42.8-82.8); PLATELET COUNT 168 10^3/uL (134-434); WHITE BLOOD COUNT 9.2 K/mm3 (4.0-10.0)
[2022-01-30 09:53] LABS: BLOOD UREA NITROGEN 7.5 mg/dL (7-18); MAGNESIUM 1.6 mg/dL (1.8-2.4)
[2022-01-30 09:55] LABS: CREATININE 0.9 mg/dL (0.55-1.3); PHOSPHOROUS 2.4 mg/dL (2.5-4.9)
[2022-01-30 09:57] LABS: BILIRUBIN,TOTAL 0.8 mg/dL (0.2-1)
[2022-01-30] MEDS: SODIUM CHLORIDE 1,000 ML IV SCH (15:10)
[2022-01-30] MEDS ORDERED: QUEtiapine FUMARATE 100 MG TABLET (FP) ONE (21:27)
[2022-01-30] MEDS: QUEtiapine FUMARATE 300 MG TABLET PO SCH (21:46)
[2022-01-31 05:19] VITALS: PULSE 88
[2022-01-31] MEDS: HEPARIN NA (PORCINE) 5,000 UNITS/ML 1ML VIAL SQ SCH (07:10)
[2022-01-31] MEDS: INSULIN SLIDING SCALE (NOVOLOG) 1 VIAL SQ SCH ×2 (07:11→11:07)
[2022-01-31 09:00] VITALS: BP 108/72; RESP 18; TEMP 9831
[2022-01-31] MEDS ORDERED: MAGNESIUM SULF 50% (8.12 MEQ/2 ML-1 GM VIAL) IVPB ONE (09:15)
[2022-01-31] MEDS ORDERED: NAPH,MB-DB/K PH,MBDB POWDER PACKET PO ONE (09:31)
[2022-01-31 09:53] LABS: ALBUMIN 3.3 g/dl (3.4-5.0)
[2022-01-31 09:54] LABS: BLOOD UREA NITROGEN 8.6 mg/dL (7-18)
[2022-01-31 09:56] LABS: CREATININE 0.9 mg/dL (0.55-1.3)
[2022-01-31 09:58] LABS: BILIRUBIN,TOTAL 0.5 mg/dL (0.2-1); TOT PROT 6.6 g/dl (6.4-8.2)
[2022-01-31] MEDS ORDERED: ASPIRIN 81 MG CHEWABLE TABLETS PO SCH (10:00)
[2022-01-31] MEDS: MULTIVITAMINS (DAILY MVI) TABLET (FP) PO SCH (10:21)
[2022-01-31] MEDS: clonazePAM 0.5 MG TABLET PO SCH (10:22)
[2022-01-31] MEDS ORDERED: ASPIRIN COATED 81 MG TABLET.EC PO SCH (13:00)
[2022-01-31] MEDS ORDERED: ATORVASTATIN CA 40 MG TABLET (FP) PO SCH (22:00)
== END 2022-01-31 15:04 | disposition home or self-care (01) | DRG 683 ==
LOC: JER 09:55 → JERBED 12:03 → J8W 13:56
PROVIDERS: ADMIT Internal Medicine; ATTEND Internal Medicine
DX: N17.9 Acute kidney failure, unspecified (principal); I42.9 Cardiomyopathy, unspecified; E11.9 Type 2 diabetes mellitus without complications; F17.210 Nicotine dependence, cigarettes, uncomplicated; F19.10 Other psychoactive substance abuse, uncomplicated; G93.89 Other specified disorders of brain; D72.829 Elevated white blood cell count, unspecified; F41.8 Other specified anxiety disorders
CPT/HCPCS: 0241U-QW; 36415; 70450-TC; 71045-TC-FY; 80053; 81003; 82010; 82803; 82962; 83735; 84100; 84443; 84484; 85025; 85610; 85730; 87040; 87086; 93005; 93010; 99285-25; G0008; J1644; Q2036

== ENCOUNTER 2022-02-20 10:35 | Inpatient (IN) | payer OTHER ==
[2022-02-20 12:02] VITALS: BMI 25.0
[2022-02-20] MEDS ORDERED: MAG HYDROX/AL HYDROX/SIMETH 30 ML UNIT-DOSE CUP PO PRN (13:18)
[2022-02-20] MEDS ORDERED: DICYCLOMINE HCL 10 MG CAPSULE PO PRN (13:18)
[2022-02-20] MEDS ORDERED: BISMUTH SUBSALICYLATE 524 MG/30 ML PO PRN (13:18)
[2022-02-20] MEDS ORDERED: LOPERAMIDE HCL 2 MG CAPSULE PO PRN (13:18)
[2022-02-20] MEDS ORDERED: NICOTINE 10 MG CARTRIDGE (INHALER) IH PRN (13:18)
[2022-02-20] MEDS ORDERED: BENZOCAINE/MENTHOL (CHLORASEPTIC ) LOZENGE MM PRN (13:18)
[2022-02-20] MEDS ORDERED: MAGNESIUM HYDROX 2400MG/30ML ORAL SUSPENSION 30 ML CUP PO PRN (13:18)
[2022-02-20] MEDS ORDERED: IBUPROFEN 600 MG TABLET (FP) PO PRN (13:18)
[2022-02-20] MEDS ORDERED: ACETAMINOPHEN 325 MG TABLET (FP) PO PRN ×2 (13:18)
[2022-02-20] MEDS ORDERED: IBUPROFEN 400 MG TABLET (FP) PO PRN (13:18)
[2022-02-20] MEDS ORDERED: ONDANSETRON *ODT* 4 MG TABLET SL PRN (13:18)
[2022-02-20] MEDS: LORazepam 1 MG TABLET PO PRN (14:52)
[2022-02-20] MEDS: METHOCARBAMOL 500 MG TABLET PO PRN (14:52)
[2022-02-20] MEDS: LORazepam 2 MG TABLET PO SCH ×2 (18:01→22:41)
[2022-02-20] MEDS ORDERED: FAMOTIDINE 20 MG TABLET PO PRN (18:44)
[2022-02-20] MEDS ORDERED: SENNOSIDES 8.6MG TABLET (FP) PO PRN (18:44)
[2022-02-20] MEDS: metFORMIN HCL 500 MG TABLET (FP) PO SCH (19:29)
[2022-02-20] MEDS: ATORVASTATIN CA 40 MG TABLET (FP) PO SCH (22:41)
[2022-02-20] MEDS: THIAMINE HCL 100 MG TABLET (FP) PO SCH (22:41)
[2022-02-20] MEDS: MELATONIN 5 MG TABLETS PO SCH (22:41)
[2022-02-21] MEDS: LORazepam 2 MG TABLET PO SCH ×4 (05:25→22:12)
[2022-02-21] MEDS: METHOCARBAMOL 500 MG TABLET PO PRN (05:27)
[2022-02-21] MEDS: metFORMIN HCL 500 MG TABLET (FP) PO SCH ×2 (06:27→17:04)
[2022-02-21] MEDS ORDERED: metFORMIN HCL 500 MG TABLET (FP) PO SCH (07:00)
[2022-02-21] MEDS: NICOTINE 7 MG/24 HOURS TOPICAL PATCH TD SCH (10:22)
[2022-02-21] MEDS: ASPIRIN 81 MG CHEWABLE TABLETS PO SCH (10:22)
[2022-02-21] MEDS: PRENATAL VITAMINS W/ FOLIC ACID TABLET (FP) PO SCH (10:22)
[2022-02-21 12:24] LABS: ALBUMIN 3.4 g/dl (3.4-5.0); BLOOD UREA NITROGEN 9.7 mg/dL (7-18); CALCIUM 8.8 mg/dL (8.5-10.1)
[2022-02-21 12:26] LABS: CREATININE 1.1 mg/dL (0.55-1.3)
[2022-02-21 12:27] LABS: BILIRUBIN,TOTAL 0.2 mg/dL (0.2-1)
[2022-02-21 12:28] LABS: TOT PROT 6.6 g/dl (6.4-8.2)
[2022-02-21] MEDS: hydrOXYzine PAMOATE 25 MG CAPSULE (FP) PO PRN (12:35)
[2022-02-21] MEDS: LORazepam 1 MG TABLET PO PRN (12:35)
[2022-02-21 13:04] LABS: HEMATOCRIT 48.1 % (35.4-49); HEMOGLOBIN 16.6 GM/dL (11.7-16.9); MCH 31.3 pg (25.7-33.7); MCHC 34.4 g/dl (32.0-35.9); MEAN CELL VOLUME 90.8 fl (80-96); MEAN PLT VOLUME 8.7 fl (7.5-11.1); PLATELET COUNT 235 10^3/uL (134-434); RDW 13.3 % (11.9-15.9)
[2022-02-21] MEDS: INSULIN SLIDING SCALE (NOVOLOG) 1 VIAL SQ SCH (17:00)
[2022-02-21] MEDS: MELATONIN 5 MG TABLETS PO SCH (22:11)
[2022-02-21] MEDS: ATORVASTATIN CA 40 MG TABLET (FP) PO SCH (22:12)
[2022-02-21] MEDS: THIAMINE HCL 100 MG TABLET (FP) PO SCH (22:12)
[2022-02-21] MEDS: QUEtiapine FUMARATE 300 MG TABLET PO SCH (22:12)
[2022-02-22] MEDS: LORazepam 1 MG TABLET PO SCH ×4 (05:26→22:25)
[2022-02-22] MEDS: metFORMIN HCL 500 MG TABLET (FP) PO SCH ×2 (07:37→17:01)
[2022-02-22] MEDS: INSULIN SLIDING SCALE (NOVOLOG) 1 VIAL SQ SCH ×2 (07:38→17:03)
[2022-02-22] MEDS: hydrOXYzine PAMOATE 25 MG CAPSULE (FP) PO PRN (10:15)
[2022-02-22] MEDS: ASPIRIN 81 MG CHEWABLE TABLETS PO SCH (10:15)
[2022-02-22] MEDS: PRENATAL VITAMINS W/ FOLIC ACID TABLET (FP) PO SCH (10:15)
[2022-02-22] MEDS: NICOTINE 7 MG/24 HOURS TOPICAL PATCH TD SCH (10:16)
[2022-02-22] MEDS: ATORVASTATIN CA 40 MG TABLET (FP) PO SCH (22:23)
[2022-02-22] MEDS: MELATONIN 5 MG TABLETS PO SCH (22:23)
[2022-02-22] MEDS: THIAMINE HCL 100 MG TABLET (FP) PO SCH (22:23)
[2022-02-22] MEDS: QUEtiapine FUMARATE 300 MG TABLET PO SCH (22:23)
[2022-02-23] MEDS ORDERED: LORazepam 0.5 MG TABLET PO PRN
[2022-02-23] MEDS: LORazepam 0.5 MG TABLET PO SCH ×4 (05:38→22:02)
[2022-02-23] MEDS: INSULIN SLIDING SCALE (NOVOLOG) 1 VIAL SQ SCH ×2 (07:08→17:18)
[2022-02-23] MEDS: metFORMIN HCL 500 MG TABLET (FP) PO SCH ×2 (07:08→17:16)
[2022-02-23] MEDS: PRENATAL VITAMINS W/ FOLIC ACID TABLET (FP) PO SCH (10:11)
[2022-02-23] MEDS: METHOCARBAMOL 500 MG TABLET PO PRN (10:12)
[2022-02-23] MEDS: ASPIRIN 81 MG CHEWABLE TABLETS PO SCH (10:12)
[2022-02-23] MEDS: NICOTINE 7 MG/24 HOURS TOPICAL PATCH TD SCH (10:12)
[2022-02-23] MEDS: hydrOXYzine PAMOATE 25 MG CAPSULE (FP) PO PRN (10:12)
[2022-02-23] MEDS ORDERED: INSULIN (NOVOLOG) ASPART 100 UNITS/ML 10ML VIAL ONE ×2 (17:10→17:21)
[2022-02-23 21:34] VITALS: RESP 18
[2022-02-23] MEDS: MELATONIN 5 MG TABLETS PO SCH (22:01)
[2022-02-23] MEDS: THIAMINE HCL 100 MG TABLET (FP) PO SCH (22:01)
[2022-02-23] MEDS: QUEtiapine FUMARATE 300 MG TABLET PO SCH (22:01)
[2022-02-23] MEDS: ATORVASTATIN CA 40 MG TABLET (FP) PO SCH (22:02)
[2022-02-24] MEDS ORDERED: LORazepam 0.5 MG TABLET PO ONE (05:00)
[2022-02-24] MEDS: metFORMIN HCL 500 MG TABLET (FP) PO SCH (06:06)
[2022-02-24] MEDS: INSULIN SLIDING SCALE (NOVOLOG) 1 VIAL SQ SCH (07:03)
[2022-02-24 09:10] VITALS: BP 124/77; PULSE 94; TEMP 98.2
[2022-02-24] MEDS: NICOTINE 7 MG/24 HOURS TOPICAL PATCH TD SCH (09:30)
[2022-02-24] MEDS: ASPIRIN 81 MG CHEWABLE TABLETS PO SCH (09:30)
[2022-02-24] MEDS: PRENATAL VITAMINS W/ FOLIC ACID TABLET (FP) PO SCH (09:30)
== END 2022-02-24 09:27 | disposition home or self-care (01) | DRG 897 ==
LOC: YASAS 10:35 → Y6N 13:36
PROVIDERS: ADMIT Allergy & Immunology; ATTEND Surgery
PROC: HZ2ZZZZ Detoxification Services for Substance Abuse Treatment (ICD-10-PCS; principal; 2022-02-20)
DX: F10.230 Alcohol dependence with withdrawal, uncomplicated (principal); F14.20 Cocaine dependence, uncomplicated; F19.282 Other psychoactive substance dependence with psychoactive substance-induced sleep disorder; F33.1 Major depressive disorder, recurrent, moderate; F13.230 Sedative, hypnotic or anxiolytic dependence with withdrawal, uncomplicated; F17.210 Nicotine dependence, cigarettes, uncomplicated; F19.24 Other psychoactive substance dependence with psychoactive substance-induced mood disorder; F41.1 Generalized anxiety disorder; F39 Unspecified mood [affective] disorder; F43.10 Post-traumatic stress disorder, unspecified; E11.9 Type 2 diabetes mellitus without complications; Z79.84 Long term (current) use of oral hypoglycemic drugs; K21.9 Gastro-esophageal reflux disease without esophagitis; Z87.01 Personal history of pneumonia (recurrent)
CPT/HCPCS: 36415; 80053; 82962; 85027; 86780; C9803-CS; U0003; U0005